=== PATIENT | male | born 1950 | race Two or more races ===

== ENCOUNTER 2023-05-14 18:00 | Emergency (ER) | payer MEDICARE, OTHER ==
[~2023-05-14] VITALS: Ht 172.7 cm; Wt 81.6 kg
[2023-05-14 21:17] LABS: BASOPHILS # (AUTO) 0.1 K/uL (0.0-0.2); BASOPHILS % (AUTO) 1.1 % (0.0-2.0); EOSINOPHILS # (AUTO) 0.8 K/uL (0.0-0.7); EOSINOPHILS % (AUTO) 7.9 % (0.0-6.0); HEMATOCRIT 37 % (39-51); HEMOGLOBIN 12.4 g/dL (13.5-17.5); LYMPHOCYTES # (AUTO) 2.5 K/uL (0.8-4.8); LYMPHOCYTES % (AUTO) 24.9 % (20.0-44.0); MEAN CORPUSCULAR HEMOGLOBIN 31 PG (26.0-33.0); MEAN CORPUSCULAR HGB CONC 34 g/dl (31.0-36.0); MEAN CORPUSCULAR VOLUME 93 fL (80-96); MONOCYTES # (AUTO) 0.8 K/uL (0.1-1.30); MONOCYTES % (AUTO) 8.2 % (2.0-12.0); NEUTROPHILS # (AUTO) 5.8 K/uL (1.8-8.9); NEUTROPHILS % (AUTO) 57.9 % (43.0-81.0); PLATELET COUNT (AUTO) 249 K/uL (150-450); RED BLOOD CELL COUNT(AUTO) 3.95 MIL/uL (4.5-6.0); RED CELL DISTRIBUTION WIDTH 14.1 % (11.5-15.0); WHITE BLOOD COUNT (AUTO) 10.1 K/uL (4.3-11.0)
[2023-05-14 21:30] LABS: CALCIUM, SERUM 9.4 mg/dL (8.5-10.1); POTASSIUM 3.6 mmol/L (3.5-5.1)
[2023-05-14 21:36] LABS: ALBUMIN 3.5 g/dL (3.4-5.0); BILIRUBIN,TOTAL 0.7 mg/dL (0.2-1.0); TOTAL PROTEIN, SERUM 7.7 g/dL (6.4-8.2)
[2023-05-14 21:38] LABS: LACTIC ACID 0.9 mmol/L (0.4-2.0)
[2023-05-14] MEDS ORDERED: PERMETHRIN 5% CRM 60 GM TUBE TP ONE (22:30)
[2023-05-14] MEDS ORDERED: PERM60CR4 TP (22:32)
[2023-05-14 23:52] VITALS: BP 132/74; TEMP 98.4; O2SAT 98
== END 2023-05-14 23:52 ==
LOC: ER 18:06
DX: B86 Scabies (principal); E11.9 Type 2 diabetes mellitus without complications; I10 Essential (primary) hypertension; Z88.0 Allergy status to penicillin
CPT/HCPCS: 36415; 80053-TC; 83605-TC; 85025-TC; 87040-TC

== ENCOUNTER 2023-09-29 15:18 | Emergency (ER) | payer MEDICARE, OTHER ==
[~2023-09-29] VITALS: Ht 167.6 cm; Wt 72.6 kg
[~2023-09-29 15:18] MED LIST: PERM60CR4 TP
[2023-09-29 18:20] VITALS: BP 139/99; TEMP 98.6; O2SAT 96
== END 2023-09-29 18:20 | disposition home or self-care (01) ==
LOC: ER 15:36
DX: B35.9 Dermatophytosis, unspecified (principal); I10 Essential (primary) hypertension; E11.9 Type 2 diabetes mellitus without complications; Z88.0 Allergy status to penicillin